=== PATIENT | female | born 1975 | race African-American/Black ===

== ENCOUNTER 2017-04-06 10:00 | Emergency (ER) | payer BC ==
[~2017-04-06] VITALS: Ht 167.6 cm; Wt 86.2 kg
[~2017-04-06 10:00] MED LIST: ZOFRAN ODT4 MG PO
[2017-04-06 11:12] LABS: ABSOLUTE NEUTROPHILS 2.8 thou/uL (1.4-8.2); BASOPHILS 0.9 % (0.0-2.0); EOSINOPHILS 1.7 % (0.0-3.0); HEMATOCRIT 38.2 % (37.0-47.0); HEMOGLOBIN 12.9 gm/dL (12.0-15.0); LYMPHOCYTES 26.2 % (24.0-44.0); MCH 29.6 pg (26.0-34.0); MCHC 33.6 g/dL (28.0-37.0); MCV 87.9 fL (80.0-100.0); MONOCYTES 5.5 % (1.0-8.0); PLATELET COUNT 212 thou/uL (150-400); POLYS 65.7 % (36.0-66.0); RBC 4.35 mil/uL (4.20-5.00); RDW 16.5 % (10.5-14.5); WBC 4.3 thou/uL (4.0-11.0)
[2017-04-06 11:18] LABS: MANUAL DIFF NO
[2017-04-06 11:19] LABS: CALCIUM 8.8 mg/dL (8.5-10.1); CREATININE 0.8 mg/dL (0.6-1.0); POTASSIUM 3.6 mmol/L (3.5-5.1)
[2017-04-06 12:22] VITALS: BP 112/70
[2017-04-08 17:10] LABS: CHLAMYDIA TRACHOMATIS-PCR Negative (Negative); NEISSERIA GONORRHEA-PCR Negative (Negative)
== END 2017-04-06 12:27 | disposition home or self-care (01) ==
LOC: ER 10:00
PROVIDERS: Physician Assistant
DX: O03.9 Complete or unspecified spontaneous abortion without complication (principal); Z3A.01 Less than 8 weeks gestation of pregnancy